=== PATIENT | female | born 1935 | race Caucasian/White ===

== ENCOUNTER 2021-11-10 15:19 | Inpatient (IN) | payer OTHER ==
[2021-11-10 16:13] VITALS: BMI 20.9
[2021-11-10 17:52] LABS: EOS % 3.2 % (0-4.5); HEMATOCRIT 37.9 % (32.4-45.2); HEMOGLOBIN 12.9 GM/dL (10.7-15.3); LYMPH % 20.4 % (8-40); MCH 32.9 pg (25.7-33.7); MCHC 33.9 g/dl (32.0-36.0); MEAN CELL VOLUME 97.1 fl (80-96); MEAN PLT VOLUME 8.1 fl (7.5-11.1); MONO % 6.7 % (3.8-10.2); NEUT % 68.7 % (42.8-82.8); PLATELET COUNT 269 10^3/uL (134-434); WHITE BLOOD COUNT 7.4 K/mm3 (4.0-10.0)
[2021-11-10 18:01] LABS: INR 1.28 (0.83-1.09); PROTHROMBIN TIME (PATIENT) 14.8 SEC (9.7-13.0)
[2021-11-10 18:04] LABS: ACTIVATED PTT 26.9 SECONDS (25.2-36.5)
[2021-11-10 18:26] LABS: ALBUMIN 3.5 g/dl (3.4-5.0); BLOOD UREA NITROGEN 22.3 mg/dL (7-18); CALCIUM 9.2 mg/dL (8.5-10.1)
[2021-11-10 18:29] LABS: CREATININE 0.7 mg/dL (0.55-1.3)
[2021-11-10 18:31] LABS: BILIRUBIN,TOTAL 0.2 mg/dL (0.2-1)
[2021-11-10 19:26] LABS: URINE APPEARANCE CLEAR; URINE BILIRUBIN NEGATIVE (NEGATIVE); URINE COLOR YELLOW; URINE GLUCOSE (UA) NEGATIVE (NEGATIVE); URINE KETONE NEGATIVE (NEGATIVE); URINE LEUK ESTERASE NEGATIVE (NEGATIVE); URINE NITRITE NEGATIVE (NEGATIVE); URINE PROTEIN NEGATIVE (NEGATIVE)
[2021-11-11 08:07] LABS: EOS % 2.6 % (0-4.5); HEMATOCRIT 37.4 % (32.4-45.2); HEMOGLOBIN 13.1 GM/dL (10.7-15.3); LYMPH % 19.7 % (8-40); MCH 33.8 pg (25.7-33.7); MEAN CELL VOLUME 96.5 fl (80-96); MONO % 6.9 % (3.8-10.2); NEUT % 69.8 % (42.8-82.8); PLATELET COUNT 282 10^3/uL (134-434); RBC 3.88 M/mm3 (3.60-5.2); RDW 12.6 % (11.6-15.6); WHITE BLOOD COUNT 7.3 K/mm3 (4.0-10.0)
[2021-11-11 08:19] LABS: ALBUMIN 3.4 g/dl (3.4-5.0); BLOOD UREA NITROGEN 17.1 mg/dL (7-18)
[2021-11-11 08:20] LABS: CALCIUM 8.8 mg/dL (8.5-10.1)
[2021-11-11 08:22] LABS: CREATININE 0.6 mg/dL (0.55-1.3)
[2021-11-11 08:23] LABS: BILIRUBIN,TOTAL 0.5 mg/dL (0.2-1); TOT PROT 6.8 g/dl (6.4-8.2)
[2021-11-11] MEDS ORDERED: ALPRAZolam 0.25 MG TABLET ONE (15:46)
[2021-11-11] MEDS ORDERED: ESCITALOPRAM OXALATE 10 MG TABLET ONE (15:46)
[2021-11-11] MEDS: ESCITALOPRAM OXALATE 10 MG TABLET PO SCH (15:57)
[2021-11-11] MEDS: ALPRAZolam 0.25 MG TABLET PO SCH (15:58)
[2021-11-11] MEDS: METHIMAZOLE 5 MG TABLET PO SCH (15:58)
[2021-11-11] MEDS ORDERED: CARBIDOPA/LEVODOPA 25/250 TABLET (FP) ONE (17:49)
[2021-11-11] MEDS: CARBIDOPA/LEVODOPA 25/250 TABLET (FP) PO SCH (17:53)
[2021-11-12] MEDS ORDERED: APIXABAN 2.5 MG TABLET ONE ×2 (00:57→08:51)
[2021-11-12] MEDS ORDERED: busPIRone HCL 5 MG TABLET ONE ×2 (00:57→08:51)
[2021-11-12] MEDS ORDERED: dilTIAZem HCL 60 MG TABLET ONE (00:57)
[2021-11-12] MEDS: busPIRone HCL 5 MG TABLET PO SCH ×3 (01:00→22:26)
[2021-11-12] MEDS: APIXABAN 2.5 MG TABLET PO SCH ×3 (01:00→21:53)
[2021-11-12] MEDS ORDERED: LOPERAMIDE HCL 2 MG CAPSULE PO ONE (06:35)
[2021-11-12] MEDS ORDERED: LOPERAMIDE HCL 2 MG CAPSULE ONE (06:55)
[2021-11-12] MEDS ORDERED: CARBIDOPA/LEVODOPA 25/250 TABLET (FP) ONE ×2 (08:28→13:08)
[2021-11-12] MEDS: CARBIDOPA/LEVODOPA 25/250 TABLET (FP) PO SCH ×3 (08:33→17:23)
[2021-11-12] MEDS ORDERED: ALPRAZolam 0.25 MG TABLET ONE (08:51)
[2021-11-12] MEDS ORDERED: ESCITALOPRAM OXALATE 10 MG TABLET ONE (08:52)
[2021-11-12] MEDS: METHIMAZOLE 5 MG TABLET PO SCH (10:20)
[2021-11-12] MEDS: ESCITALOPRAM OXALATE 10 MG TABLET PO SCH (10:20)
[2021-11-12] MEDS: ALPRAZolam 0.25 MG TABLET PO SCH (10:20)
[2021-11-13 02:18] VITALS: BP 126/78; PULSE 89; TEMP 97.6
== END 2021-11-13 02:33 | DRG 57 ==
LOC: JER 15:19 → JERBED 18:56 → J4S 11-12 15:47
PROVIDERS: ADMIT Internal Medicine; ATTEND Family Medicine
DX: G30.9 Alzheimer's disease, unspecified (principal); I48.92 Unspecified atrial flutter; F02.80 Dementia in other diseases classified elsewhere, unspecified severity, without behavioral disturbance, psychotic disturbance, mood disturbance, and anxiety; R55 Syncope and collapse; E78.5 Hyperlipidemia, unspecified; I69.328 Other speech and language deficits following cerebral infarction; I10 Essential (primary) hypertension
CPT/HCPCS: 0241U-QW; 36415; 70450-TC; 71045-TC-FY; 72125-TC; 80053; 80061; 81003; 83036; 84439; 84443; 84484; 85025; 85610; 85730; 87086; 93005; 93010; 93971-TC; 99285-25

== ENCOUNTER 2022-02-11 08:38 | Inpatient (IN) | payer OTHER ==
[2022-02-11 09:10] VITALS: BMI 19.8
[2022-02-11 10:33] LABS: BASO % 0.9 % (0-2.0); EOS % 3.4 % (0-4.5); HEMOGLOBIN 12.3 GM/dL (10.7-15.3); LYMPH % 18.5 % (8-40); MCH 32.8 pg (25.7-33.7); MCHC 33.3 g/dl (32.0-36.0); MEAN CELL VOLUME 98.5 fl (80-96); MEAN PLT VOLUME 8.1 fl (7.5-11.1); MONO % 7.5 % (3.8-10.2); NEUT % 69.7 % (42.8-82.8); PLATELET COUNT 220 10^3/uL (134-434); RBC 3.76 M/mm3 (3.60-5.2); RDW 13.4 % (11.6-15.6); WHITE BLOOD COUNT 6.8 K/mm3 (4.0-10.0)
[2022-02-11 10:36] LABS: INR 1.06 (0.83-1.09); PROTHROMBIN TIME (PATIENT) 12.2 SEC (9.7-13.0)
[2022-02-11 10:39] LABS: ACTIVATED PTT 27.3 SECONDS (25.2-36.5)
[2022-02-11 10:40] LABS: BLOOD UREA NITROGEN 29.3 mg/dL (7-18)
[2022-02-11 10:42] LABS: ALBUMIN 3.4 g/dl (3.4-5.0)
[2022-02-11 10:44] LABS: CREATININE 0.8 mg/dL (0.55-1.3)
[2022-02-11 10:46] LABS: BILIRUBIN,TOTAL 0.4 mg/dL (0.2-1)
[2022-02-11] MEDS ORDERED: LORazepam 2 MG/ML SDV VIAL IVPUSH ONE (11:23)
[2022-02-11] MEDS ORDERED: busPIRone HCL 5 MG TABLET ONE (21:11)
[2022-02-11] MEDS ORDERED: APIXABAN 2.5 MG TABLET ONE (21:11)
[2022-02-11] MEDS ORDERED: dilTIAZem HCL 60 MG TABLET ONE (21:11)
[2022-02-11] MEDS: busPIRone HCL 5 MG TABLET PO SCH (21:19)
[2022-02-11] MEDS: APIXABAN 2.5 MG TABLET PO SCH (21:20)
[2022-02-12 08:48] LABS: BASO % 0.8 % (0-2.0); EOS % 2.4 % (0-4.5); HEMATOCRIT 38.3 % (32.4-45.2); HEMOGLOBIN 13.3 GM/dL (10.7-15.3); MCH 34.1 pg (25.7-33.7); MCHC 34.6 g/dl (32.0-36.0); MEAN CELL VOLUME 98.4 fl (80-96); MEAN PLT VOLUME 7.5 fl (7.5-11.1); MONO % 8.5 % (3.8-10.2); NEUT % 67.3 % (42.8-82.8); PLATELET COUNT 216 10^3/uL (134-434); RDW 13.5 % (11.6-15.6); WHITE BLOOD COUNT 7.7 K/mm3 (4.0-10.0)
[2022-02-12] MEDS ORDERED: CARBIDOPA/LEVODOPA 25/250 TABLET (FP) ONE ×3 (08:49→16:42)
[2022-02-12] MEDS: CARBIDOPA/LEVODOPA 25/250 TABLET (FP) PO SCH ×3 (08:53→18:15)
[2022-02-12 09:05] LABS: CALCIUM 9.5 mg/dL (8.5-10.1)
[2022-02-12 09:06] LABS: BLOOD UREA NITROGEN 22.2 mg/dL (7-18)
[2022-02-12 09:08] LABS: CREATININE 0.9 mg/dL (0.55-1.3)
[2022-02-12] MEDS ORDERED: ESCITALOPRAM OXALATE 20 MG TABLET PO SCH (10:00)
[2022-02-12] MEDS ORDERED: busPIRone HCL 5 MG TABLET ONE (10:33)
[2022-02-12] MEDS ORDERED: DIVALPROEX SODIUM 500 MG TABLET E.C. ONE (10:33)
[2022-02-12] MEDS ORDERED: DIVALPROEX SODIUM 125 MG TABLET E.C. ONE (10:40)
[2022-02-12] MEDS ORDERED: APIXABAN 2.5 MG TABLET ONE (10:40)
[2022-02-12] MEDS: DIVALPROEX SODIUM 125 MG SPRINKLE CAPS PO SCH (10:45)
[2022-02-12] MEDS: APIXABAN 2.5 MG TABLET PO SCH (10:45)
[2022-02-12] MEDS: busPIRone HCL 5 MG TABLET PO SCH (10:45)
[2022-02-12] MEDS ORDERED: DIVALPROEX SODIUM 125 MG SPRINKLE CAPS PO ONE (10:47)
[2022-02-12] MEDS: METHIMAZOLE 5 MG TABLET PO SCH (12:02)
[2022-02-12 13:56] LABS: EPI CELLS 8 /uL (0-25.1); HYALINE CASTS 5 /uL (0-3.1); PH,URINE 8.5 (5.0-8.0); URINE APPEARANCE TURBID; URINE BACTERIA >9,000 /uL (0-1359); URINE BILIRUBIN NEGATIVE (NEGATIVE); URINE COLOR YELLOW; URINE GLUCOSE (UA) NEGATIVE (NEGATIVE); URINE KETONE 1+ (NEGATIVE); URINE LEUK ESTERASE 3+ (NEGATIVE); URINE NITRITE NEGATIVE (NEGATIVE); URINE PROTEIN 1+ (NEGATIVE); URINE RBC 23 /uL (0-23.9); URINE WBC 1265 /uL (0-25.8)
[2022-02-12 14:04] LABS: YEAST NEGATIVE (NEGATIVE)
[2022-02-13] MEDS: APIXABAN 2.5 MG TABLET PO SCH ×3 (01:48→22:22)
[2022-02-13] MEDS: busPIRone HCL 5 MG TABLET PO SCH ×3 (01:48→22:22)
[2022-02-13] MEDS: DIVALPROEX SODIUM 125 MG SPRINKLE CAPS PO SCH (10:07)
[2022-02-13] MEDS: METHIMAZOLE 5 MG TABLET PO SCH (10:11)
[2022-02-13] MEDS: ESCITALOPRAM OXALATE 10 MG TABLET PO SCH (10:15)
[2022-02-14] MEDS: busPIRone HCL 5 MG TABLET PO SCH (09:53)
[2022-02-14] MEDS: ESCITALOPRAM OXALATE 10 MG TABLET PO SCH (09:53)
[2022-02-14] MEDS: APIXABAN 2.5 MG TABLET PO SCH (09:54)
[2022-02-14] MEDS: METHIMAZOLE 5 MG TABLET PO SCH (09:54)
[2022-02-14] MEDS: DIVALPROEX SODIUM 125 MG SPRINKLE CAPS PO SCH (09:54)
[2022-02-14 14:32] VITALS: BP 109/55; PULSE 50; RESP 24; TEMP 97.7
== END 2022-02-14 15:37 | DRG 689 ==
LOC: JER 08:38 → JERBED 11:11 → J4W 02-13 01:09 → OBSVTOIN 02-13 11:09
PROVIDERS: ADMIT Internal Medicine; ATTEND Internal Medicine
DX: N39.0 Urinary tract infection, site not specified (principal); G92.8 Other toxic encephalopathy; I48.19 Other persistent atrial fibrillation; I48.92 Unspecified atrial flutter; F03.91 Unspecified dementia, unspecified severity, with behavioral disturbance; I10 Essential (primary) hypertension; E78.5 Hyperlipidemia, unspecified; B96.4 Proteus (mirabilis) (morganii) as the cause of diseases classified elsewhere; Z88.0 Allergy status to penicillin
CPT/HCPCS: 36415; 70450-TC; 71045-TC-FY; 72125-TC; 80048; 80053; 81003; 84443; 84484; 85025; 85610; 85730; 87086; 87186; 93005; 93010; 97116-GP; 97161-GP; 99285-25; C9803-CS; G0378; U0003; U0005